=== PATIENT | female | born 1995 | race Two or more races ===

== ENCOUNTER 2024-11-25 10:33 | Emergency (ER) | payer MEDICAID, SELFPAY ==
[2024-11-25 11:20] VITALS: BP 142/79; PULSE 94; RESP 19; TEMP 36.9; O2SAT 98; BMI 63.1
--- NOTE | 2024-11-25 11:48 | XR_ITS ---
EXAMINATION: Ankle, right 3 views . Technique: Ankle AP, oblique, lateral 3 views Date and time of exam: November 25, 2024 1136 hrs. Indications: Patient fell today with injury to the ankle, ankle pain. Findings: Lateral malleolar soft tissue swelling No acute fracture No ankle dislocation Impression: No acute fracture
[2024-11-25] MEDS: HYDROcodone/APAP 5/325 TABLET 1 TAB PO (13:50)
--- NOTE | 2024-11-25 14:22 | EDNOTE_ITS ---
Lower Extremity Injury RME/HPI General Chief Complaint: Ankle/Foot Injury Stated Complaint: FELL & HURT RIGHT ANKLE PAIN/SWELLING Time Seen by Provider: 11/25/24 11:19 Arrival date/time: 11/25/24 10:33 This is a 29-year-old female presents to the emergency department with complaints of right ankle pain for 1 day. Patient reports she was wearing some boots with her heel when she inverted her right ankle causing her to fall on both her knees. Reports since then she has been limping and having moderate pain to her right ankle with ambulation. Denies any other injuries. Patient did not attempt any interventions or take any OTC medications prior to ED visit. Mode of arrival: wheelchair Related Data Home Medications ?Medication ?Instructions ?Recorded ?Confirmed lisinopril 10 mg tablet 40 mg PO QDAY 11/15/1707/07 Previous Rx's ?Medication ?Instructions ?Recorded hydrochlorothiazide 25 mg tablet 25 mg PO QAM #30 tabs 11/02/17 ibuprofen 800 mg tablet 800 mg PO TID PRN pain #30 t abs 07/07/19 cetirizine 10 mg capsule (All Day 10 mg PO QDAY #30 ca ps 09/14/20 Allergy (cetirizine)) sodium chloride 0.65 % nasal spray 2 spray intranasal QID #60 mL 09/14/20 aerosol (Saline Nasal Mist) ibuprofen 800 mg tablet (IBU) 800 mg PO Q8H #20 tabs 0 11/25/24 Allergies Allergy/AdvReac Type Severity Reaction Status Date / Time No Known Allergies Allergy Verified 11/25/24 10:34 Review of Systems Review of Systems Systems Reviewed: All systems reviewed, normal except as documented Narrative Review of Systems: Gen: No fever, no chills, no weight loss EYES: No discharge, no visual changes, no pain HEENT: No ear pain, no congestion, no sore throat PULM: No shortness of breath, no cough, no congestion CV: No chest pain, no dyspnea on exertion, no palpitations GI: No nausea, no vomiting, no diarrhea, no pain, no constipation : No frequency, no urgency,? no dysuria Musc/skel: Right ankle pain, no back pain Skin: No rash? Psyc: No hallucinations, no depression Heme/Lymph: No easy bleeding or bruising tendencies Neuro: No weakness, no headache ED Exam Narrative Physical exam: General: Sittiing in Exam table in no acute distress, answering questions appropriately HENT: normocephalic, atraumatic, EOMI, PERRLA, moist mucous membranes Chest: chest wall is nontender Cardiac: regular rate and rhythm, normal S1 and S2, no murmurs, rubs, or gallops, capillary refill ?2 seconds Pulmonary: clear to auscultation bilaterally, no wheezing, crackles, or rhonchi Abdominal: active bowel sounds, soft, nontender, nondistended Neuro: A&OX3, CN II-XII intact, sensation grossly intact bilaterally in UE and LE. Skin: no rashes, no ecchymosis Ext: + Abrasions superficial noted to bilateral knees. Right ankle malleoli are swelling tenderness to palpation CMS intact Course Quality Measures none Orders Category Date Time Status XR ankle comp RT min 3V Stat Exams 11/25/24 11:48 Completed HYDROcodone*/APAP 5/325 [[place] 5/325] Med 11/25/24 11:48 Discontinued 1 tab PO X1 ONE Vital Signs Vital signs: Vital Signs Temperature 98.4 F 11/25/24 11:20 Pulse Rate 94 11/25/24 11:20 Respiratory Rate 19 11/25/24 11:20 Blood Pressure 142/79 H 11/25/24 11:20 Pulse Oximetry (%) 98 11/25/24 11:20 Oxygen Delivery Method Room Air 11/25/24 11:20 Extremity Injury, Lower Patient data External records reviewed:: [facility] previous records Clinical information provided by:: patient Social determinants that could affect healthcare access:: none Patient has the following chronic illnesses:: none How is presenting disease/condition affected by chronic disease/condition?: no chronic disease Evaluation data The following diagnostics were reviewed and interpreted by me:: radiology exam(s) Lab and/or radiology exams considered but not ordered:: none Interpretation Summary: EXAMINATION: Ankle, right 3 views . Technique: Ankle AP, oblique, lateral 3 views Date and time of exam: November 25, 2024 1136 hrs. Indications: Patient fell today with injury to the ankle, ankle pain. Findings: Lateral malleolar soft tissue swelling No acute fracture No ankle dislocation Impression: No acute fracture Medications / Prescriptions Medications or Prescriptions considered but not ordered:: none Medication administrations:: Medication Administration History Discontinued Medications Hydrocodone Bitart/Acetaminophen (Hydrocodone/[place]ap 5/325 Tablet) 1 tab PO X1 ONE Stop: 11/25/24 11:49 Last Admin: 11/25/24 13:50 Dose: 1 tab Documented By: MARCOS All medications administered and effective Consultations Consultation(s) initiated? (list below): No Diagnosis Extremity Injury, Lower Differential Diagnosis: ankle sprain and strain, puncture wound of foot, fracture of toe and ankle fracture Most likely diagnosis given after review of the tests above:: Ankle strain and sprain Admission Indicated Admission indicated?: not indicated Admission Request Was there a request for admission?: No Disposition Plan Disposition Plan: Discharge Discharge Attestation Discharge Attestation: The patient and all family members were given an opportunity to ask questions and understood the discharge instructions. Discharge instructions specifically effects, indications for sooner follow up or return to the emergency department, and the expected course of current diagnosis. Patient condition: Stable Discharge Plan Plan Patient Disposition: HOME (Self Care) Patient condition on transfer: Stable Prescriptions/Referrals Prescriptions/Med Rec: New ibuprofen [IBU] 800 mg tablet 800 mg PO Q8H Qty: 20 0RF No Action hydrochlorothiazide 25 MG tablet 25 mg PO QAM Qty: 30 0RF lisinopril 10 mg Tablet 40 mg PO QDAY All Day Allergy (cetirizine) 10 mg capsule 10 mg PO QDAY Qty: 30 0RF sodium chloride [Saline Nasal Mist] 0.65 % aerosol,spray 2 spray intranasal QID Qty: 60 0RF ibuprofen 800 mg tablet 800 mg PO TID PRN (Reason: pain) Qty: 30 0RF Referrals: Wily Strickland PA-C [Primary Care Provider] - In 1 week Problem List Clinical Impression: Ankle sprain and strain Patient/Caregiver Discharge Instructions Discharge Activity: activity as tolerated Additional Instructions: Your x-ray today does not demonstrate a fracture. This is most likely a sprain. Use your ankles stirrup and ankle brace with the use of crutches for at least a week. Follow-up with your primary doctor you might need a repeat x-ray to reassure there is no secondary fracture. Return to the emergency department this any worsening symptoms change in condition. Print Language: Ghanaian Stand Alone Forms: Maren Award Info., Work/School Release, Patient Portal Info Letter [place] Supervising Physician [place] Supervising Physician: Dr Arita
== END 2024-11-25 15:48 | disposition home or self-care (01) ==
PROVIDERS: Emergency Provider Emergency Medicine; PCP Physician Assistant
DX: S93.401A Sprain of unspecified ligament of right ankle, initial encounter (principal); S96.911A Strain of unspecified muscle and tendon at ankle and foot level, right foot, initial encounter; W19.XXXA Unspecified fall, initial encounter
CPT/HCPCS: 73610; 99283; A9270

== ENCOUNTER 2025-02-28 21:51 | Emergency (ER) | payer MEDICAID, SELFPAY ==
[2025-02-28 21:51] VITALS: BMI 63.1
[2025-02-28 22:23] VITALS: BP 145/90; PULSE 90; RESP 18; TEMP 36.9; O2SAT 99
--- NOTE | 2025-03-01 | XR_ITS ---
Examination: Complete OB ultrasound, less than 14 weeks, transabdominal Date and time of exam: March 01, 2025 0024 hours INDICATIONS: Left-sided pelvic pain today Technique: Obstetrical ultrasound images less than 14 weeks performed via transabdominal imaging Findings: A normal shaped single intrauterine gestation is present in the uterus. pole 4.5 cm corresponds to 11 weeks 2 days gestational age Cardiac motion 160 BPM Ultrasonographic survey of visible and placental structures unremarkable. Amniotic fluid volume appears appropriate for this estimated gestational age. Right ovary 3.1 cm arterial flow Left ovary is obscured by bowel gas. IMPRESSION: Viable intrauterine gestation 11 weeks 2 days.
[2025-03-01 00:03] LABS: Basophils % (Auto) 0 % (0-2.5); Eosinophils # (Auto) 0.1 Thou/mm3 (0.0-0.5); Eosinophils % (Auto) 1 % (0-10); Hematocrit 36.9 % (36.0-46.0); Hemoglobin 11.4 g/dL (12.0-16.0); Immature Granulocytes % (Auto) 0 % (0-0); Immature Granulocytes Auto 0.03 Thou/mm3 (0.00-0.00); Lymphocytes # (Auto) 2.2 Thou/mm3 (1.0-4.8); Lymphocytes % (Auto) 24 % (10-50); Mean Corpuscular HGB Conc 30.9 g/dl (31.0-37.0); Mean Corpuscular Hemoglobin 25.3 pg (25.0-35.0); Mean Corpuscular Volume 82 fL (80-100); Monocytes # (Auto) 0.5 Thou/mm3 (0.0-0.8); Monocytes % (Auto) 5 % (0-12); Neutrophils # (Auto) 6.5 Thou/mm3 (1.8-7.7); Neutrophils % (Auto) 69 % (37-80); Nucleated Red Blood Cell % 0 /100 WBC (0); Platelet Count 235 Thou/mm3 (140-440); RDW Standard Deviation 44.3 fL (36.4-46.3); White Blood Count 9.4 Thou/mm3 (3.6-11.0)
--- NOTE | 2025-03-01 00:07 | PD.EDSOB ---
ED SOB =RME/HPI General Chief Complaint: Shortness of Breath/Dyspnea Stated Complaint: 12WKS PREG, DIZZINESS/ SOB /CRAMPING X 1WK Time Seen by Provider: 02/28/25 23:14 Arrival date/time: 02/28/25 21:51 RME / HPI RME / HPI Narrative: This section includes all my notes and documentations, including HPI, PE, and ED course. Harvey Tipton MD HPI: 29 y/o 12-week female with Hx of Hypertension and Gall bladder Disease presents with about a week history of left pelvic cramping and dyspnea. No fever. No cough. No bleeding. No other complaints. ROS: All negative except as documented in HPI. Physical Exam: General: Alert and oriented. No acute distress when remaining still. Eyes: Conjunctivae and lids clear. ENT: No nasal congestion. Neck: Supple. Heart: RRR. Lungs: No respiratory distress. Good air movement. No rhonchi, wheezing, rales. Abdomen: Soft and nontender. Normal bowel sounds. No distension. No rebound or guarding. Back: No CVA tenderness. Skin: Warm and dry. Neuro: Alert and oriented X 3. I reviewed all diagnostic test results. My review of the US report is IUP. Blood tests and urine tests unremarkable except hCG 25038. COVID/influenza negative. At this point, diagnoses include threatened miscarriage. Recommended expectant management. Based on my best medical judgment, made decision no further evaluation or treatment indicated at this time. Patient understands and agrees to the discharge instructions customized and printed, see below. Discharge Instructions from Dr. Tipton: 1.? ? ? After evaluation, your baby is alive and doing well. 2.? ? ? Today, your estimated gestational age is 11 5/7 weeks. 3.? ? ? Only time will determine whether you will have a successful or you will have a miscarriage.? If your symptoms stop, you can have a successful .? If your symptoms worsen, you may have a miscarriage.? If you have a miscarriage, unfortunately we won?t be able to save the baby because it?s too early.? Under 20 weeks, unfortunately we can?t help.?? 4.? ? ? See your doctor on 03/05/2025 for recheck.? No sexual activity until cleared by a doctor taking care of you.?? Your hCG level was [address]355, doubles every few days and normal . To increase your red blood cells which carry oxygen to your organs, increase food rich in iron (such as red meat and egg yolks and seaweed). 5.? ? ? Seek immediate medical care for severe bleeding (soaking more than 3 pads per hour), intolerable pain, or with any concerns.? Harvey Tipton MD Related Data Home Medications ?Medication ?Instructions ?Recorded ?Confirmed lisinopril 10 mg tablet 40 mg PO QDAY 11/15/17 07/07/19 Previous Rx's ?Medication ?Instructions ?Recorded hydrochlorothiazide 25 mg tablet 25 mg PO QAM #30 tabs 11/02/17 ibuprofen 800 mg tablet 800 mg PO TID PRN pain #30 tabs 07/07/19 cetirizine 10 mg capsule (All Day 10 mg PO QDAY #30 caps 09/14/20 Allergy (cetirizine)) sodium chloride 0.65 % nasal spray 2 spray intranasal QID #60 mL 09/14/20 aerosol (Saline Nasal Mist) ibuprofen 800 mg tablet (IBU) 800 mg PO Q8H #20 tabs 11/25/24 Allergies Allergy/AdvReac Type Severity Reaction Status Date / Time No Known Allergies Allergy Verified 11/25/24 10:34 Review of Systems Review of Systems Systems Reviewed: All systems reviewed, normal except as documented Past Medical History Past Medical History CARDIAC: Positive Hypertension GASTROINTESTINAL: Positive Pancreatitis and Gall Bladder Disease REPRODUCTIVE: Positive Previous Pregnancies Surgical History SURGICAL: Positive Tonsillectomy and Section ED Exam Narrative Physical exam: Refer to HPI above Course Quality Measures none Orders Category Date Time Status Bedside Influenza A&B Antigen Test NOW Care 02/28/25 23:43 Completed US OB <= 14 weeks fetus Stat Exams 03/01/25 00:00 Taken Beta HCG,Quantitative Stat Lab 02/28/25 23:49 Completed CBC Stat Lab 02/28/25 23:49 Completed CMP [Comprehensive Metabolic Panel] Stat Lab 02/28/25 23:49 Completed COVID-19 Antigen (In-House) Stat Lab 03/01/25 01:40 Completed Free T4 (Free Thyroxine) Stat Lab 02/28/25 23:49 Completed Magnesium Stat Lab 02/28/25 23:49 Completed TSH [Thyroid Stimulating Hormone] Stat Lab 02/28/25 23:49 Completed UA, C/S IF [Urinalysis, C/S if Indicated] Stat Lab 03/01/25 00:36 Completed Vital Signs Vital signs: Vital Signs Temperature 98.4 F 02/28/25 22:23 Pulse Rate 90 02/28/25 22:23 Respiratory Rate 18 02/28/25 22:23 Blood Pressure 145/90 H 02/28/25 22:23 Pulse Oximetry (%) 99 02/28/25 22:23 Oxygen Delivery Method Room Air 02/28/25 22:23 Shortness of Breath / Dyspnea MDM Narrative MDM Narrative:: Scribe Attestation: I, Rosie Leiva, am scribing for and in the presence of Dr. Tipton. Provider Notation: Although this document has been carefully reviewed, there may still be some phonetic and other typographical errors.? These errors are purely grammatical due to imperfections in the software program and should not be construed in any way to? compromise the substance of the patient's medical care during this visit. 29 y/o 12-week female with Hx of Hypertension and Gall bladder Disease presents to ED c/o intermittent shortness of breath x 1 week and dizziness and left-sided abdominopelvic cramping x 2 days. SOB is worse with general exertion. Denies history of Asthma. Patient's PCP recently stopped her hypertension medication. Also denies nausea, vomiting, cough, sore throat, fever, vaginal bleeding, or any urinary symptoms. No other complaints. Patient data External records reviewed:: [facility] previous records (Reviewed prior ED records from 11/25/24. Patient was seen for Ankle sprain and strain.) Clinical information provided by:: patient Social determinants that could affect healthcare access:: none Patient has the following chronic illnesses:: Hypertension, Gall Bladder Disease How is presenting disease/condition affected by chronic disease/condition?: exacerbated by Evaluation data The following diagnostics were reviewed and interpreted by me:: lab results and radiology exam(s) Lab and/or radiology exams considered but not ordered:: None Interpretation Summary: I reviewed all diagnostic test results. My review of the US report is IUP. Blood tests and urine tests unremarkable except hCG 97459. COVID/influenza negative. Medications / Prescriptions Medications or Prescriptions considered but not ordered:: None Medication administrations:: N/A Consultations Consultation(s) initiated? (list below): No Diagnosis Shortness of Breath Differential Diagnosis: community acquired pneumonia and other (Bronchitis, Influenza, COVID-19, URI) Most likely diagnosis given after review of the tests above:: threatened miscarriage Admission Indicated Admission indicated?: not indicated Explain why admission is indicated or not indicated:: There was no indication for admission.? Admission Request Was there a request for admission?: No Disposition Plan Disposition Plan: Discharge Discharge Attestation Discharge Attestation: The patient and all family members were given an opportunity to ask questions and understood the discharge instructions. Discharge instructions specifically effects, indications for sooner follow up or return to the emergency department, and the expected course of current diagnosis. Patient condition: Stable Discharge Plan Plan Patient Disposition: HOME (Self Care) Prescriptions/Referrals Prescriptions/Med Rec: No Action hydrochlorothiazide 25 MG tablet 25 mg PO QAM Qty: 30 0RF lisinopril 10 mg Tablet 40 mg PO QDAY All Day Allergy (cetirizine) 10 mg capsule 10 mg PO QDAY Qty: 30 0RF sodium chloride [Saline Nasal Mist] 0.65 % aerosol,spray 2 spray intranasal QID Qty: 60 0RF ibuprofen 800 mg tablet 800 mg PO TID PRN (Reason: pain) Qty: 30 0RF ibuprofen [IBU] 800 mg tablet 800 mg PO Q8H Qty: 20 0RF Referrals: Temporary Provider,ED [Physician] - In 1 week Problem List Clinical Impression: Threatened miscarriage Patient/Caregiver Discharge Instructions Discharge Activity: activity as tolerated Education Materials: ED Possible Miscarriage ... Additional Instructions: Discharge Instructions from Dr. Tipton: 1.? ? ? After evaluation, your baby is alive and doing well. 2.? ? ? Today, your estimated gestational age is 11 5/7 weeks. 3.? ? ? Only time will determine whether you will have a successful or you will have a miscarriage.? If your symptoms stop, you can have a successful .? If your symptoms worsen, you may have a miscarriage.? If you have a miscarriage, unfortunately we won?t be able to save the baby because it?s too early.? Under 20 weeks, unfortunately we can?t help.?? 4.? ? ? See your doctor on 03/05/2025 for recheck.? No sexual activity until cleared by a doctor taking care of you.?? Your hCG level was [address]1463, doubles every few days and normal . To increase your red blood cells which carry oxygen to your organs, increase food rich in iron (such as red meat and egg yolks and seaweed). 5.? ? ? Seek immediate medical care for severe bleeding (soaking more than 3 pads per hour), intolerable pain, or with any concerns.? Print Language: Uzbek Stand Alone Forms: Maren Award Info., Patient Portal Info Letter
[2025-03-01 00:57] LABS: Alanine Aminotransferase 32 U/L (10-49); Albumin, Serum 4.1 gm/dL (3.5-5.0); Albumin/Globulin Ratio 1.5 (1.2-2.2); Alkaline Phosphatase 67 U/L (46-116); Anion Gap 11 (7-16); Aspartate Amino Transferase 25 U/L (0-34); BUN/Creatinine Ratio 10 Ratio (12-20); Beta HCG,Quantitative 59784 mIU/mL (<5.0); Bilirubin,Total 0.4 mg/dL (0.3-1.2); Blood Urea Nitrogen 8 mg/dL (9-23); Calcium 8.6 mg/dL (8.3-10.6); Calcium (Corrected) 8.6 mg/dL (8.5-10.1); Carbon Dioxide 24.4 mMol/L (20.0-31.0); Chloride 105 mMol/L (98-107); Creatinine (Component) 0.8 mg/dL (0.6-1.3); Estimated Creatinine Clearance 180.3 mL/min (>60); Free T4 (Free Thyroxine) 1.36 ng/dL (0.89-1.76); Globulin 2.7 gm/dL (2.3-3.5); Glucose 100 mg/dL (74-106); Magnesium 1.8 mg/dL (1.6-2.6); Osmolality,Calculated 277 (275-295); Potassium 3.8 mMol/L (3.4-5.1); Sodium 140 mMol/L (136-145); Thyroid Stimulating Hormone 2.02 uIU/mL (0.55-4.78); Total Protein 6.8 gm/dL (5.7-8.2); eGFR > 60 See Note
[2025-03-01 01:14] LABS: Collection Type, Urine Clean Catch; RBC,Urine 0 /hpf (0-3); WBC,Urine 0 /hpf (0-5)
[2025-03-01 01:24] LABS: Bacteria,Urine Rare; Bilirubin,Urine Negative (Negative); Blood,Urine Negative (Negative); Clarity,Urine Clear (Clear/Hazy); Color,Urine Yellow (Lt Yel-Yel); Culture Indicated,Urine Not Indicated; Glucose, Urine Negative (Negative); Ketones,Urine Negative (Negative); Leukocyte Esterase,Urine Negative (Negative); Nitrite,Urine Negative (Negative); Protein,Urine Negative (Neg - Trace); Specific Gravity,Urine 1.024 (1.001-1.035); Squamous Epithelial Cell,Urine 3 /hpf (0-5)
--- NOTE | 2025-03-01 01:59 | PRELIM_ITS ---
Obstetric ultrasound (transabdominal ) with Doppler. March 01, 2025 0024 hours Clinical history: Cramping (GA 12 weeks). Technique: Real-time ultrasound was performed using Duplex scanning including arterial inflow, venous outflow, color and spectral Doppler analysis of right ovary. Comparison: None. Findings: There is an intrauterine gestation with a single live fetus of mean gestational age 11 weeks and 5 days (CRL= 4.99 cm). cardiac activity is present at heart rate of 160 beats per minute. The uterus measures 14.2 x 7.5 x 9.9 cm. The right ovary measures 3.1 x 2.4 x 2.6 cm and is unremarkable. The left ovary was not visualized. Normal blood flow in the right ovary with normal wave Doppler spectral analysis. There is no free fluid in the pelvis. No abnormalities detected by Doppler. Impression: Intrauterine gestation with a single live fetus of mean gestational age 11 weeks and 5 days. Report Electronically Signed By: Enrico Funes 03/01/2025 1:58:18 AM [EST]
[2025-03-01 02:05] VITALS: BP 133/83; PULSE 81; RESP 19; TEMP 36.8; O2SAT 98
[2025-03-01 02:47] LABS: COVID-19 Antigen (In-House) Negative (Negative)
== END 2025-03-01 02:57 | disposition home or self-care (01) ==
PROVIDERS: Emergency Provider Emergency Medicine; PCP Family Medicine
DX: O20.0 Threatened abortion (principal); Z3A.12 12 weeks gestation of pregnancy
CPT/HCPCS: 36415; 76801; 80053; 81001; 83735; 84439; 84443; 84702; 85025; 87400; 87811; 99284

== ENCOUNTER 2025-09-12 17:53 | Emergency (ER) | payer MEDICAID, SELFPAY ==
[2025-09-12 19:41] VITALS: BP 161/94; PULSE 98; RESP 20; TEMP 37.1; O2SAT 97; BMI 65.7
--- NOTE | 2025-09-12 19:43 | EDNOTE_ITS ---
ED Headache RME/HPI General Chief Complaint: Headache Stated Complaint: 09/07/25, CHATTERJEE, chills Time Seen by Provider: 09/12/25 19:48 Arrival date/time: 09/12/25 17:53 RME / HPI RME / HPI Narrative: See [facility] for Dr. Tipton's HPI Documentation. Related Data Home Medications ?Medication ?Instructions ?Recorded ?Confirmed lisinopril 10 mg tablet 40 mg PO QDAY 11/15/1707/07 Previous Rx's ?Medication ?Instructions ?Recorded hydrochlorothiazide 25 mg tablet 25 mg PO QAM #30 tabs 11/02/17 ibuprofen 800 mg tablet 800 mg PO TID PRN pain #30 t abs 07/07/19 cetirizine 10 mg capsule (All Day 10 mg PO QDAY #30 ca ps 09/14/20 Allergy (cetirizine)) sodium chloride 0.65 % nasal spray 2 spray intranasal QID #60 mL 09/14/20 aerosol (Saline Nasal Mist) ibuprofen 800 mg tablet (IBU) 800 mg PO Q8H #20 tabs 0 11/25/24 Allergies Allergy/AdvReac Type Severity Reaction Status Date / Time No Known Allergies Allergy Verified 09/12/25 17:59 Review of Systems Review of Systems Systems Reviewed: All systems reviewed, normal except as documented Past Medical History Past Medical History CARDIAC: Positive Hypertension GASTROINTESTINAL: Positive Gastrointestinal Disorders, Pancreatitis and Gall Bladder Disease REPRODUCTIVE: Positive Previous Pregnancies Surgical History SURGICAL: Positive Tonsillectomy and Section ED Exam Narrative Physical exam: See [facility] for Dr. Tipton's Physical Exam Documentation. Course Quality Measures none Orders Category Date Time Status COVID-19 Screening Questionnaire NOW Care 09/12/25 22:[address] Screening NOW Care 09/12/25 23:58 Active Decision to Admit X1 Care 09/12/25 22:18 Completed EKG (ED ONLY) *Do not use* NOW Care 09/12/25 20:24 Completed Miscellaneous Nursing Order PRN Care 09/12/25 23:07 Active Saline [Insert IV] NOW Care 09/12/25 20:23 Active Consult to General Surgery Stat Cons 09/13/25 02:53 Ordered Consult to Obstetrics Stat Cons 09/12/25 22:[address] abdomen pelvis w con Stat Exams 09/12/25 23:[address] head/brain wo con Stat Exams 09/12/25 20:25 Completed EKG (ED Only) Stat Exams 09/12/25 20:24 Draft US gall bladder Stat Exams 09/12/25 20:25 Completed XR chest 1V portable Stat Exams 09/12/25 20:24 Completed Amylase Stat Lab 09/12/25 20:45 Completed BNP [B-Type Natriuretic Peptide] Stat Lab 09/12/25 20:45 Completed Bilirubin,Direct Stat Lab 09/12/25 20:45 Completed CBC Stat Lab 09/12/25 20:45 Completed CK [Creatine Kinase] Stat Lab 09/12/25 20:45 Completed CMP [Comprehensive Metabolic Panel] Stat Lab 09/12/25 20:45 Completed COVID-19 Antigen (In-House) Stat Lab 09/12/25 22:50 Completed CRP [C-Reactive Protein] Stat Lab 09/12/25 20:45 Completed ESR [Sed Rate (ESR)] Stat Lab 09/12/25 20:45 Completed FLU A&B [Influenza A & B Rapid Panel] Stat Lab 09/12/25 22:50 Completed Hemoglobin A1C [Glycohemoglobin w (eAG)] Stat Lab 09/12/25 20:45 Completed Lipase Stat Lab 09/12/25 20:45 Completed Magnesium Stat Lab 09/12/25 20:45 Completed PT [Prothrombin Time with INR] Stat Lab 09/12/25 20:45 Completed PTT [Partial Thromboplastin Time] Stat Lab 09/12/25 20:45 Completed Procalcitonin Stat Lab 09/12/25 20:45 Completed TSH [Thyroid Stimulating Hormone] Stat Lab 09/12/25 20:45 Completed Troponin I Stat Lab 09/12/25 20:45 Completed UA, C/S IF [Urinalysis, C/S if Indicated] Stat Lab 09/12/25 20:38 Completed Uric Acid Stat Lab 09/12/25 20:45 Completed Urine Culture Stat Lab 09/12/25 20:38 Received VBG [Venous Blood Gas] Stat Lab 09/12/25 20:45 Completed HYDROcodone*/APAP 5/325 [[place] 5/325] Med 09/12/25 23:02 Discontinued 2 tab PO Q6HR PRN HYDROcodone*/APAP 5/325 [[place] 5/325] Med 09/13/25 03:43 Active 2 tab PO Q6HR PRN Ibuprofen Tab [Motrin Tab] Med 09/12/25 23:01 Discontinued 800 mg PO Q8HR ONE Labetalol Tab [Trandate Tab] Med 09/12/25 23:15 Active 200 mg PO TID Labetalol* IV [Trandate IV] Med 09/12/25 20:24 Discontinued 20 mg IVP X1 ONE Magnesium Sulfate 2 GM Ivpb [Magnesium Sulfate Ivpb] Med 09/12/25 20:24 Discontinued 2 gm in 50 ml IV X1 Ondansentron Med 09/13/25 00:00 Discontinued 4 mg IV Q6HR Ondansetron Inj [Zofran Inj] Med 09/13/25 03:50 Active 4 mg IV Q6HR PRN NV Nausea Or Vomiting Ondansetron Inj [Zofran Inj] Med 09/12/25 20:24 Discontinued 4 mg IVP X1 ONE Sodium Chloride 0.9% 1000 ml [Ns] 1,000 ml Med 09/12/25 20:24 Discontinued IV 999 mls/hr cefTRIAXone/D5w 1gm IV premix [Rocephin/D5w 1gm IV Med 09/13/25 05:37 Ordered premix] 50 ml IV X1 Vital Signs Vital signs: Vital Signs Temperature 98.8 F 09/12/25 19:41 Pulse Rate 98 09/12/25 19:41 Respiratory Rate 20 09/12/25 19:41 Blood Pressure 161/94 H 09/12/25 19:41 Pulse Oximetry (%) 97 09/12/25 19:41 Oxygen Delivery Method Room Air 09/12/25 19:41 Headache MDM Narrative MDM Narrative:: This section includes all my notes and documentations, including HPI, PE, and ED course. Harvey Tipton MD HPI: 30 y/o female presents with headache and elevated blood pressure s/p 5 days ago. No speech or visual impairment. No loss of power in the arms or legs. No chest pain. No other complaints. ROS: All negative except as documented in HPI. Physical Exam: General:? Alert and oriented.? No acute distress when remaining still. Eyes:? Conjunctivae and lids clear.? EOMI.? PERRL. ENT:? No nasal congestion.? Pharynx normal.? Tympanic membrane normal bilaterally.??? Neck:? Supple.? No carotid bruit.? No JVD.?? Heart:? RRR.? Lungs:? No respiratory distress.? Good air movement.? No rhonchi, wheezing, rales.?? Abdomen:? Soft with apical tenderness.? Normal bowel sounds.? No distension.? No rebound or guarding.?? Back:? No CVA tenderness.?? Legs:? No clubbing, cyanosis, edema.? Skin:? Warm and dry.?? Neuro:? Alert and oriented X 3.? Cranial Nerves II-XII grossly intact.? No peripheral motor deficits. I reviewed all diagnostic test results: My interpretation of the EKG is: Sinus rhythm (97 bpm) with nonspecific ST-T changes. My interpretation of the chest x-ray is NAD. My review of the Head/Brain CT report is: No acute findings. My review of the Abdomen/Pelvis CT report is: Fat containing umbilical and supraumbilical hernias. My review of the Gallbladder US report is: NAD. Blood tests remarkable for Mg 1.4. UA showed trace protein, leukocyte esterase, 278 RBC, and 38 WBC. Covid/Influenza: Negative. At this point, diagnoses include: Preeclampsia Hypomagnesemia UTI Fat-containing umbilical hernia Treatment here included: IVF Zofran 4 mg IV Labetalol 20 mg IV MgSO4 2 gram IV Rocephin 1 g IV Some improvement noted. I discussed the case with our DIRECTOR LEARNING (Dr. Chen). About the presentation and exam and diagnostics and treatments here. And need of further care in the hospital. Will accept the patient. Harvey Tipton MD Patient data External records reviewed:: [facility] previous records (Reviewed prior ED records fro m 03/01/25. Patient was seen for Threatened miscarriage.) Clinical information provided by:: patient Social determinants that could affect healthcare access:: none Patient has the following chronic illnesses:: None reported How is presenting disease/condition affected by chronic disease/condition?: no chronic disease Evaluation data The following diagnostics were reviewed and interpreted by me:: EKG tracing(s) (My interpretation of the EKG is: Sinus rhythm (97 bpm) with nonspecific ST-T changes. Harvey Tipton MD) Lab and/or radiology exams considered but not ordered:: None Interpretation Summary: I reviewed all diagnostic test results: My interpretation of the EKG is: Sinus rhythm (97 bpm) with nonspecific ST-T changes. My interpretation of the chest x-ray is NAD. My review of the Head/Brain CT report is: No acute findings. My review of the Abdomen/Pelvis CT report is: Fat containing umbilical and supraumbilical hernias. My review of the Gallbladder US report is: NAD. Blood tests remarkable for Mg 1.4. UA showed trace protein, leukocyte esterase, 278 RBC, and 38 WBC. Covid/Influenza: Negative. Medications / Prescriptions Medications or Prescriptions considered but not ordered:: None Medication administrations:: Medication Administration History Hydrocodone Bitart/Acetaminophen (Hydrocodone/[place]ap 5/325 Tablet) 2 tab PO Q6HR PRN PRN Reason: PAIN SCALE 4-6 (Moderate Stop: 09/18/25 03:42 Ceftriaxone Sodium/Dextrose (Rocephin/D5w 1gm Iv Premix) 50 mls @ 100 mls/hr IV X1 ONE Stop: 09/13/25 06:06 Labetalol HCl (Labetalol 100 Mg Tablet) 200 mg PO TID SHARLA Stop: 10/12/25 23:14 Last Admin: 09/12/25 23:10 Dose: 200 mg Documented By: CARL Ondansetron HCl (Ondansetron Inj 2 Mg/Ml Inj 2 Ml) 4 mg IV Q6HR PRN PRN Reason: NAUSEA OR VOMITING Stop: 10/13/25 03:49 Discontinued Medications Hydrocodone Bitart/Acetaminophen (Hydrocodone/Apap 5/325 Tablet) 2 tab PO Q6HR PRN PRN Reason: headache/pain Stop: 09/17/25 23:01 Magnesium Sulfate (Magnesium Sulfate Ivpb) 2 gm in 50 mls @ 25 mls/hr IV X1 ONE Stop: 09/12/25 22:23 Last Infusion: 09/13/25 00:10 Dose: Infused Documented By: Admin: 09/12/25 22:11 Dose: 25 mls/hr Documented By: EB Sodium Chloride (Ns) 1,000 mls @ 999 mls/hr IV .Q1H1M ONE Stop: 09/12/25 21:24 Last Infusion: 09/12/25 23:40 Dose: Infused Documented By: Admin: 09/12/25 22:10 Dose: 999 mls/hr Documented By: EB Ibuprofen (Ibuprofen Tab 400 Mg Tablet) 800 mg PO Q8HR ONE Stop: 09/12/25 23:02 Last Admin: 09/12/25 23:12 Dose: 800 mg Documented By: EB Labetalol HCl (Labetalol Inj 5 Mg/Ml Vial 4 Ml) 20 mg IVP X1 ONE Stop: 09/12/25 20:25 Last Admin: 09/12/25 23:40 Dose: Not Given Documented By: EB Non-Admin Reason: Cancelled by Provider Non-Formulary Medication (Ondansentron) 4 mg IV Q6HR SHARLA Stop: 10/13/25 00:00 Last Admin: 09/13/25 05:28 Dose: Not Given Documented By: RC Non-Admin Reason: Discontinued Ondansetron HCl (Ondansetron Inj 2 Mg/Ml Inj 2 Ml) 4 mg IVP X1 ONE; Protocol Stop: 09/12/25 20:25 Last Admin: 09/13/25 01:50 Dose: Not Given Documented By: CVL Non-Admin Reason: Change of Condition Treatment here FROM ME included: IVF Zofran 4 mg IV Labetalol 20 mg IV MgSO4 2 gram IV Rocephin 1 g IV Consultations Consultation(s) initiated? (list below): Yes Consultation #1 (Physician, Specialty, Details): I discussed the case with our DIRECTOR LEARNING (Dr. Chen). About the presentation and exam and diagnostics and treatments here. And need of further care in the hospital. Will accept the patient. Time: 22:10 Diagnosis Differential diagnosis headache: migraine, tension headache, subarachnoid hemorrhage and other (Preeclampsia) Most likely diagnosis given after review of the tests above:: At this point, diagnoses include: Preeclampsia Hypomagnesemia UTI Fat-containing umbilical hernia Admission Indicated Admission indicated?: indicated Explain why admission is indicated or not indicated:: Preeclampsia Hypomagnesemia UTI Fat-containing umbilical hernia Admission Request Was there a request for admission?: Yes Admission Attestation Admission request attestation: I discussed the case with our DIRECTOR LEARNING (Dr. Chen). About the presentation and exam and diagnostics and treatments here. And need of further care in the hospital. Will accept the patient. Disposition Plan Disposition Plan: Admit Discharge Plan Plan Patient Disposition: Admit Acute Care w/in Hospital Prescriptions/Referrals Prescriptions/Med Rec: No Action hydrochlorothiazide 25 MG tablet 25 mg PO QAM Qty: 30 0RF lisinopril 10 mg Tablet 40 mg PO QDAY All Day Allergy (cetirizine) 10 mg capsule 10 mg PO QDAY Qty: 30 0RF sodium chloride [Saline Nasal Mist] 0.65 % aerosol,spray 2 spray intranasal QID Qty: 60 0RF ibuprofen 800 mg tablet 800 mg PO TID PRN (Reason: pain) Qty: 30 0RF ibuprofen [IBU] 800 mg tablet 800 mg PO Q8H Qty: 20 0RF Referrals: Osbaldo Cao MD [Primary Care Provider, Family Practice] - In 1 week Problem List Clinical Impression: Preeclampsia, Hypomagnesemia, Umbilical hernia, Urinary tract infection Patient/Caregiver Discharge Instructions Print Language: [place] Zealander Stand Alone Forms: Maren Award Info., Patient Portal Info Letter
--- NOTE | 2025-09-12 20:24 | XR_ITS ---
EXAMINATION: PA chest single view TECHNIQUE: Upright PA chest single view Date and time: September 12, 2025, 2044 hours, comparison December 11, 2020 INDICATIONS: Shortness of breath status post 5 days ago FINDINGS: Normal heart size Mild prominent central pulmonary vasculature. No pneumonia or pulmonary edema IMPRESSION: Mild prominent central pulmonary vasculature
--- NOTE | 2025-09-12 20:24 | EKG_ITS ---
[facility] Test Date: 2025-09-12 Pat Name: PATRICIO THORNTON Department: Room: - Gender: Female Business Programmer: : 1995 Requested By: Harvey Mason Order Number: [id number] Reading MD: Harvey Mason Measurements Intervals [place] Rate: 97 P: 44 AL: 146 QRS: 24 QRSD: 91 T: 39 QT: 333 QTc: 424 Interpretive Statements SINUS RHYTHM LOW QRS VOLTAGE IN PRECORDIAL LEADS [QRS DEFLECTION < 1.0 mV IN CHEST LEADS] Compared to ECG 09/13/2020 23:10:33 Sinus tachycardia no longer present /store/S0/[id number]/ecg/[id number].pdf
--- NOTE | 2025-09-12 20:25 | XR_ITS ---
Examination: Abdomen sonogram, Limited Date and time of exam: September 12, 2025, 2113 hours INDICATIONS: Epigastric pain beginning 3 days ago. Technique: Real-time farias scale transabdominal sonographic images of the upper abdomen obtained. Findings: Absent gallbladder Normal common bile duct 0.5 cm Pancreatic head 3.3 cm Liver 23.7 cm fatty infiltration no focal liver lesions Normal hepatopetal portal venous flow Patent IVC IMPRESSION: Normal common bile duct Prominent hepatomegaly fatty infiltration no focal liver lesions
--- NOTE | 2025-09-12 20:25 | XR_ITS ---
Examination: CT brain head without contrast. 2-D sagittal coronal reconstructions Date and time of exam: September 12, 2025, 2036 hours INDICATIONS: Onset generalized head pain today COMPARISON: September 13, 2020 CTDI: vol (mGy): 76.8 DLP: (mGycm): 1593 Technique: Multiple CT axial sections of the brain have been obtained, 5 mm slice thickness. Contrast has not been administered. 2-D sagittal, coronal reconstructions have been obtained Low dose protocols were performed. One or more of the following dose reduction techniques were used; automated exposure control, adjustment of the mA and/or KV according to patient size, use of iterative reconstruction technique. Findings: No significant ventricular enlargement. Intra-axial or extra-axial hemorrhage density is not seen. No mass effect or midline shift Basal cisterns are not remarkable. Fourth ventricle is midline. Cranial vault intact. 10 mm polyp in the left maxillary antrum Impression: Negative for acute hemorrhage, mass effect or midline shift Advise clinical correlation and follow-up accordingly
[2025-09-12 20:49] LABS: Collection Type, Urine Clean Catch
[2025-09-12 21:02] LABS: Bilirubin,Urine Negative (Negative); Blood,Urine 3+ (Negative); Clarity,Urine Clear (Clear/Hazy); Color,Urine Yellow (Lt Yel-Yel); Glucose, Urine Negative (Negative); Ketones,Urine Negative (Negative); Leukocyte Esterase,Urine Positive (Negative); Nitrite,Urine Negative (Negative); PH,Urine 6.0 (5.0-7.0); Protein,Urine Trace (Neg - Trace); RBC,Urine 278 /hpf (0-3); Specific Gravity,Urine 1.023 (1.001-1.035); Squamous Epithelial Cell,Urine 2 /hpf (0-5); Urobilinogen,Urine Negative mg/dL (0.0-1.0); WBC,Urine 38 /hpf (0-5)
[2025-09-12 21:02] LABS: Base Excess, Venous 5 (-3-3); O2 Saturation, Venous 81 % (96-97); PCO2, Venous 34 mmHg (36-56); PO2, Venous 43 mmHg (15-58); pH, Venous 7.52 (7.33-7.66)
[2025-09-12 21:08] LABS: Culture Indicated,Urine Yes
[2025-09-12 21:15] LABS: Basophils # (Auto) 0.0 Thou/mm3 (0.0-0.2); Basophils % (Auto) 0 % (0-2.5); Eosinophils # (Auto) 0.1 Thou/mm3 (0.0-0.5); Eosinophils % (Auto) 1 % (0-10); Hematocrit 29.9 % (36.0-46.0); Hemoglobin 9.4 g/dL (12.0-16.0); Immature Granulocytes Auto 0.06 Thou/mm3 (0.00-0.00); Lymphocytes # (Auto) 0.7 Thou/mm3 (1.0-4.8); Lymphocytes % (Auto) 7 % (10-50); Mean Corpuscular HGB Conc 31.4 g/dl (31.0-37.0); Mean Corpuscular Hemoglobin 27.2 pg (25.0-35.0); Mean Corpuscular Volume 86 fL (80-100); Monocytes # (Auto) 0.6 Thou/mm3 (0.0-0.8); Monocytes % (Auto) 6 % (0-12); Neutrophils # (Auto) 8.6 Thou/mm3 (1.8-7.7); Neutrophils % (Auto) 85 % (37-80); Nucleated Red Blood Cell # 0.03 Thou/mm3 (0.00-0.00); Nucleated Red Blood Cell % 0 /100 WBC (0); Platelet Count 234 Thou/mm3 (140-440); RDW Standard Deviation 48.1 fL (36.4-46.3); Red Blood Count 3.46 Miln/mm3 (4.00-5.20); White Blood Count 10.1 Thou/mm3 (3.6-11.0)
[2025-09-12 21:18] LABS: Sed Rate (ESR) 44 mm/hr (0-20)
[2025-09-12 21:21] LABS: INR 1.0 (0.9-1.3); Partial Thromboplastin Time 30.0 Seconds (22.0-36.0); Prothrombin Time 10.4 Seconds (9.0-12.2)
[2025-09-12 21:22] LABS: B-Type Natriuretic Peptide 62 pg/mL (0-100)
[2025-09-12 21:31] LABS: Glucose Estimated Average 97 mg/dL (80-131); Hemoglobin A1C 5.0 % Hgb (4.8-6.0)
[2025-09-12 21:33] VITALS: BP 152/93; PULSE 84; RESP 20; TEMP 36.6; O2SAT 97
[2025-09-12 21:33] LABS: Alanine Aminotransferase 31 U/L (10-49); Albumin, Serum 4.0 gm/dL (3.5-5.0); Albumin/Globulin Ratio 1.4 (1.2-2.2); Alkaline Phosphatase 120 U/L (46-116); Amylase 86 U/L (30-118); Anion Gap 11 (7-16); Aspartate Amino Transferase 22 U/L (0-34); BUN/Creatinine Ratio 11 Ratio (12-20); Bilirubin,Direct 0.2 mg/dL (0.0-0.3); Bilirubin,Total 0.6 mg/dL (0.3-1.2); Blood Urea Nitrogen 8 mg/dL (9-23); Calcium 8.8 mg/dL (8.3-10.6); Calcium (Corrected) 8.8 mg/dL (8.5-10.1); Carbon Dioxide 27.8 mMol/L (20.0-31.0); Chloride 106 mMol/L (98-107); Creatine Kinase 55 U/L (34-171); Creatinine (Component) 0.7 mg/dL (0.6-1.3); Estimated Creatinine Clearance 210.0 mL/min (>60); Globulin 2.8 gm/dL (2.3-3.5); Glucose 111 mg/dL (74-106); Lipase 30 U/L (12-53); Magnesium 1.4 mg/dL (1.6-2.6); Osmolality,Calculated 288 (275-295); Potassium 3.7 mMol/L (3.4-5.1); Procalcitonin 0.09 ng/ml (0.0-0.49); Sodium 145 mMol/L (136-145); Thyroid Stimulating Hormone 1.62 uIU/mL (0.55-4.78); Total Protein 6.8 gm/dL (5.7-8.2); Troponin I 0.023 ng/mL (0.0-0.045); Uric Acid 6.5 mg/dL (3.1-7.8); eGFR > 60 See Note
[2025-09-12 21:35] LABS: C-Reactive Protein 12.8 mg/dL (0.0-0.9)
[2025-09-12] MEDS: SODIUM CHLORIDE 0.9% 1000 ML 1,000 ML 999 ML IV (22:10)
[2025-09-12] MEDS: Magnesium Sulfate 2 GM Ivpb 2 GM/50 ML BAG IV (22:11)
[2025-09-12 23:10] VITALS: BP 155/80; PULSE 94
[2025-09-12] MEDS: LABETALOL 100 MG TABLET 200 MG PO (23:10)
[2025-09-12 23:12] VITALS: TEMP 36.6
[2025-09-12] MEDS: IBUPROFEN TAB 400 MG TABLET 800 MG PO (23:12)
[2025-09-12 23:26] LABS: COVID-19 Antigen (In-House) Negative (Negative); Influenza A Ag Negative; Influenza B Ag Negative
--- NOTE | 2025-09-12 23:58 | XR_ITS ---
Examination: CT abdomen with intravenous contrast CT pelvis with intravenous contrast 2-D coronal reconstructions 2-D sagittal reconstructions Date and time of exam: September 13, 2025, 0140 hours INDICATIONS: Status post September 07, 2025 with headache chills abdominal pain. CTDI: vol (mGy) 27.6 DLP: (mGycm) 1777 Technique: Multiple axial sections of the abdomen and pelvis have been obtained. 64 slice high-resolution scanner used. 3 mm axial sections have been obtained, post intravenous injection 60 cc [id number] 2-D sagittal, coronal reconstructions obtained. Low dose protocols were performed. One or more of the following dose reduction techniques were used; automated exposure control, adjustment of the mA and/or KV according to patient size, use of iterative reconstruction technique. Findings: No focal liver or splenic lesions, mild hepatomegaly mild to moderate splenomegaly Absent gallbladder No pancreatic mass No hydronephrosis Supraumbilical fat-containing hernia, 4.5 cm Fat-containing umbilical hernia 4.8 cm Prominent fundus of the uterus with thickened endometrial stripe in the lower uterine segment Mild disc narrowing L5-S1 Likely postoperative change in the anterior pelvic wall IMPRESSION: Hepatosplenomegaly Fat-containing umbilical and supraumbilical hernias No bowel obstruction
[2025-09-13] VITALS (11 sets, daily range): BP systolic 109–165; BP diastolic 71–98; PULSE 63–92; RESP 18–20; TEMP 36.6–37; O2SAT 95–98
--- NOTE | 2025-09-13 01:05 | PC.NURSE ---
Pt reports 6/10 CHATTERJEE that is improved from earlier. Pt BP is now 109/84 which is vast improvement
--- NOTE | 2025-09-13 02:47 | PRELIM_ITS ---
CT scan of the abdomen and pelvis with intravenous contrast (axial sections with sagittal and coronal reformats) September 13, 2025 at 0140 hours Clinical History: Abdominal pain (question umbilical hernia).Additional history: on September 07, 2025. Comparison: No prior study is available for comparison. Findings: Bibasilar atelectasis is seen. The gallbladder is surgically absent. There is mild hepatomegaly. There is also moderate splenomegaly. The pancreas, kidneys and adrenals are unremarkable. No evidence of bowel obstruction. The appendix is not visualized. The urinary bladder is unremarkable. There is an enlarged uterus. There is no free fluid or free air. There are fat containing umbilical and supraumbilical hernias. There is fat stranding in the anterior pelvic wall, which may be related to recent surgery. There is dependent subcutaneous soft tissue edema overlying the lumbar spine. There is degenerative change in the spine and at the SI joints. Impression: 1. No evidence of bowel obstruction, free air or abscess. 2. Fat containing umbilical and supraumbilical hernias. 3. Other findings as described above. Report Electronically Signed By: Jimenez Page 09/13/2025 2:46:37 AM [EST]
--- NOTE | 2025-09-13 06:48 | PC.NURSE ---
multiple calls made to pharmacy to get Ceftriaxone restocked or delivered Per 800 number pharmacy in house is there at 0630 but no anser mult times
--- NOTE | 2025-09-13 07:11 | PC.NURSE ---
kevynar to Uche MARKHAM
[2025-09-13] MEDS: cefTRIAXone/D5w 1gm IV premix 1 GM/50 ML BAG IV (07:12)
[2025-09-13] MEDS: LABETALOL 100 MG TABLET 200 MG PO ×2 (07:12→14:26)
--- NOTE | 2025-09-13 12:45 | PD.SURCONS ---
HPI Consult details History of present illness: 30F with HTN, morbid obesity, chronic ventral hernia and C section on 09/07/25 who presented to ER due to headache. Pt underwent CT AP due to abdominal pain with findings of two ventral hernias, each containing fat and >4cm. Pt states she has had the more superior hernia for as long as she can remember while the umbilical hernia occurred after cholecystectomy. She reports her headache has improved and she is not having any abdominal pain Review of Systems Review of Systems ROS Unobtainable: All systems reviewed & no additional complaints except as documented Meds Home Medications and Allergies Home Medications ?Medication ?Instructions ?Recorded ?Confirmed ?Type lisinopril 10 mg tablet 40 mg PO QDAY 11/15/17 07/07/19 History Allergies Allergy/AdvReac Type Severity Reaction Status Date / Time No Known Allergies Allergy Verified 09/12/25 17:59 Exam Vital Signs Temp Pulse Resp BP Pulse Ox O2 Del Method 98.4 F 76 18 149/82 H 98 Room Air 09/13/25 10:06 09/13/25 10:06 09/13/25 10:06 09/13/25 10:06 09/13/25 10:06 09/13/25 10:06 Constitutional Constitutional: no acute distress Routine Respiratory Exam Respiratory: Present no resp distress Routine Abdominal Exam Abdominal: Present soft and hernia (reducible ventral hernias, no overlying skin changes); Absent tenderness or distended Results Results: Laboratory Laboratory results: results reviewed Results: Imaging CT scan - abdomen: report reviewed and image reviewed Assessment & Plan Plan 30F with HTN, morbid obesity and Csection on 09/07/25 presenting with headache, with chronic ventral hernias containing fat. Pt does not require any surgical intervention now and understands that elective surgery would best be undertaken only after significant weight loss, due to the very high risk of recurrence No general surgery intervention indicated Please reconsult as needed
--- NOTE | 2025-09-13 13:53 | PD.EVENT ---
Documentation for date of: 09/13/25 Event Note Event Note: The patient is a 30-year-old -0-0-2 status post repeat low-transverse section in [place] with the high risk obstetrics service who presented to the ER around midnight reporting a headache headache. At that time her blood pressures were elevated. She received 1-2 doses of IV labetalol. Dr. Chen was planning on admitting the patient but the patient has been monitored since then and her blood pressures are mostly in the 140s to 150s over 70s. Patient's headache is very similar to a spinal headache. She states that during her surgery, they tried to place the spinal several times and were not successful and she had to go under general anesthesia. Of note her BMI is 66. As the patient is not a candidate for a blood patch and is it not likely to be successful, the plan will be to send the patient home with close follow-up. She has an appointment with her primary ACADEMIC SERVICES PROFESSIONAL in [place] tomorrow. I will send her home with Chai. She was encouraged to take her oxycodone. She stated she only took 2 oxycodone tablets total since surgery because she is afraid that she is going to get constipated. She denies right upper quadrant pain, visual changes, and her headache seems positional in nature. Her CT scan was negative her lab work is normal. Patient states she is a chronic hypertensive usually on lisinopril and hydrochlorothiazide before . She has been followed this with [facility] home monitoring. She was discharged home on 200 mg of labetalol twice a day from [place]. I asked her to increase this to 300 mg twice a day and follow-up with her primary [employer] SET UP OPERATOR tomorrow for her scheduled appointment. She will be discharged from the ER at this time.
--- NOTE | 2025-09-13 13:59 | ESDS_ITS ---
DS: Providers Provider Primary care physician: Osbaldo Cao MD Consults: 09/12/25 22:14 Consult to Obstetrics Stat Comment: Preeclampsia Consulting Provider: Carla Chen 09/13/25 02:53 Consult to General Surgery Stat Comment: Hernia Consulting Provider: Lela Sanchez Attending Provider on DC: Rosita Li MD ([facility]) Discharging Provider: Rosita iL MD ([facility]) Anticipated date of discharge: 09/13/25 DS: Diagnosis Discharge Diagnosis (1) Chronic hypertension in obstetric context: Status: Acute Assessment & Plan: Increase labetalol to 300 mg p.o. twice daily follow-up with your primary PRODUCT SAFETY ENGINEER doctor tomorrow for scheduled appointment. (2) Headache after spinal puncture: Status: Acute Assessment & Plan: CT negative. Fioricet written. Increase fluid and caffeine. (3) Umbilical hernia without obstruction or gangrene: Status: Acute Assessment & Plan: Dr. Seaman from general surgery evaluated patient. No surgical intervention needed at this time. Problem List Completed Was Problem List Reviewed/Reconciled?: Yes Summary/Hosp Course Brief History: Patient is a 30-year-old -0-0-2 postop day 6 after repeat with a high risk physician in [place]. Patient presented in the ER with a headache. Her blood pressure was initially elevated and Dr. Chen was planning on admitting the patient however patient was monitored over several hours almost 12+ hours in the ER and her blood pressure stabilized in the 140s to 150s over 70s. She only required 1 dose of IV labetalol. Patient's headache is positional and typical of a spinal headache. At this point patient will be discharged home she has an appoint with her primary PRODUCT SAFETY ENGINEER tomorrow in [place]. I will add Fioricet and told the patient increase fluids and caffeine. She will increase her blood pressure medications to labetalol 300mg 3 times daily. She was on labetalol 200 mg twice daily. Peripartum Data Procedures: Patient had a in [place] 6 days ago for complications: spinal headache Status at Discharge Cognitive/behavioral status at discharge: Patient is alert and orient x 3 in no apparent distress Functional status at discharge: independent ambulation Overall status at discharge: patient is progressing back to baseline Time Spent with Patient Time attestation: Total time spent providing and/or coordinating discharge services: Time spent: Less than 30 minutes Specific discharge activities: Pelvic rest x 6 weeks no intercourse tampons douching heavy lifting or exercise x 6 weeks. Follow-up with your primary PRODUCT SAFETY ENGINEER in [place] tomorrow. Exam Vital Signs Temp Pulse Resp BP Pulse Ox O2 Del Method 98.5 F 85 18 154/83 H 95 Room Air 09/13/25 13:09 09/13/25 13:09 09/13/25 13:09 09/13/25 13:09 09/13/25 13:09 09/13/25 13:09 Narrative Exam Patient is alert and orient x 3 in no apparent distress Constitutional Constitutional: no acute distress Comments: Abdomen is obese. Fundus difficult to palpate but nontender. Incisions clean dry intact. Patient has some bruising on her abdomen from her Lovenox injections. Extremities show 1+ edema of her ankles no erythema. Discharge Plan Plan Patient Disposition: HOME (Self Care) Discharge Disposition comment: Stable Patient condition on transfer: Stable Prescriptions/Referrals Prescriptions/Med Rec: New hydrocodone-acetaminophen 5-325 mg Tablet 2 tab PO Q6HR MDD 2 PRN (Reason: Pain Scale 4-6 (Moderate) Qty: 5 0RF labetalol 100 mg Tablet 300 mg PO TID Qty: 9 0RF [id number]-xoifvzbdxlgom-phlg [Fioricet] 50-300-40 mg capsule 1 cap PO TID PRN (Reason: pain) Qty: 30 0RF Continued All Day Allergy (cetirizine) 10 mg capsule 10 mg PO QDAY Qty: 30 0RF sodium chloride [Saline Nasal Mist] 0.65 % aerosol,spray 2 spray intranasal QID Qty: 60 0RF ibuprofen 800 mg tablet 800 mg PO TID PRN (Reason: pain) Qty: 30 0RF Discontinued hydrochlorothiazide 25 MG tablet 25 mg PO QAM Qty: 30 0RF lisinopril 10 mg Tablet 40 mg PO QDAY ibuprofen [IBU] 800 mg tablet 800 mg PO Q8H Qty: 20 0RF Referrals: Osbaldo Cao MD [Primary Care Provider, Family Practice] - In 1 week Problem List Clinical Impression: Preeclampsia, Hypomagnesemia, Umbilical hernia, Urinary tract infection Impression comment: Headache, chronic hypertensive, possible spinal headache postop day 6 status repeat low-transverse section in [place] Patient/Caregiver Discharge Instructions Discharge Activity: activity as tolerated Other Activity Instructions:: Pelvic rest x 6 weeks. No heavy lifting inter course tampons douching for 6 weeks. Follow-up with your primary PRODUCT SAFETY ENGINEER doctor in [place] tomorrow. Diet Instructions: Low-salt diet drink lots of water Education Materials: Understanding Preeclampsia, Hernia Surgery Traditional Print Language: Cymro Stand Alone Forms: Maren Award Info., Patient Portal Info Letter Planned Discharge Date 09/13/25 (1) Chronic hypertension in obstetric context Qualifiers: Trimester: unspecified trimester Qualified Code(s): O10.919 - Unspecified pre-existing hypertension complicating , unspecified trimester
[2025-09-13] MEDS: ACETAMIN/CAFF/BUTAL (Fioricet) 1 TAB 2 TAB PO (14:27)
== END 2025-09-13 14:50 | disposition home or self-care (01) ==
PROVIDERS: Obstetrics & Gynecology; Emergency Provider Emergency Medicine; PCP Family Medicine
DX: O11.5 Pre-existing hypertension with pre-eclampsia, complicating the puerperium (principal); O10.93 Unspecified pre-existing hypertension complicating the puerperium; O86.20 Urinary tract infection following delivery, unspecified; N39.0 Urinary tract infection, site not specified; O90.89 Other complications of the puerperium, not elsewhere classified; K42.9 Umbilical hernia without obstruction or gangrene; O99.285 Endocrine, nutritional and metabolic diseases complicating the puerperium; E83.42 Hypomagnesemia
CPT/HCPCS: 36415; 70450; 71045; 74177; 76705; 80053; 81001; 82150; 82248; 82550; 82803; 83036; 83690; 83735; 83880; 84145; 84443; 84484; 84550; 85025; 85610; 85652; 85730; 86140; 87086; 87502; 87811; 93005; 96365; 96366; 99284; A4649; J0696; J3475; J7030; Q9967; A9270

== ENCOUNTER 2025-09-24 22:50 | Emergency (ER) | payer MEDICAID, SELFPAY ==
[2025-09-24 22:58] VITALS: BMI 66.6
--- NOTE | 2025-09-24 22:59 | PC.NURSE ---
RIGO PAIGE AT TRIAGE AND PER RIGO PAIGE NOT A STROKE ALERT.
--- NOTE | 2025-09-24 23:07 | XR_ITS ---
Examination: CT brain head without contrast. 2-D sagittal coronal reconstructions Date and time of exam: September 24, 2025, 1123 hours, comparison September 12, 2025 INDICATIONS: Headache blurred vision beginning 3 hours ago CTDI: vol (mGy): 67.6 DLP: (mGycm): 1357 Technique: Multiple CT axial sections of the brain have been obtained, 5 mm slice thickness. Contrast has not been administered. 2-D sagittal, coronal reconstructions have been obtained Low dose protocols were performed. One or more of the following dose reduction techniques were used; automated exposure control, adjustment of the mA and/or KV according to patient size, use of iterative reconstruction technique. Findings: No significant ventricular enlargement. Intra-axial or extra-axial hemorrhage density is not seen. No mass effect or midline shift Basal cisterns are not remarkable. Fourth ventricle is midline. Cranial vault intact. Impression: Negative for acute hemorrhage, mass effect or midline shift As clinically warranted, brain MRI follow-up would best assess for demyelinating disease, acute ischemic change
[2025-09-24 23:11] VITALS: BP 164/104; PULSE 54; RESP 18; TEMP 36.6; O2SAT 98
--- NOTE | 2025-09-24 23:13 | EKG_ITS ---
[facility] Test Date: 2025-09-24 Pat Name: PATRICIO THORNTON Department: Room: - Gender: Female It Applications Manager: : 1995 Requested By: Porfirio Padilla Order Number: [id number] Reading MD: Porfirio Padilla Measurements Intervals [place] Rate: 53 P: 40 ND: 151 QRS: 39 QRSD: 102 T: 45 QT: 442 QTc: 417 Interpretive Statements SINUS BRADYCARDIA Compared to ECG 09/12/2025 20:58:54 Sinus rhythm no longer present /store/S0/[id number].pdf
[2025-09-24 23:41] LABS: Collection Type, Urine Voided
[2025-09-24 23:43] LABS: Basophils # (Auto) 0.1 Thou/mm3 (0.0-0.2); Basophils % (Auto) 1 % (0-2.5); Eosinophils # (Auto) 0.2 Thou/mm3 (0.0-0.5); Eosinophils % (Auto) 3 % (0-10); Hematocrit 36.8 % (36.0-46.0); Hemoglobin 11.3 g/dL (12.0-16.0); Immature Granulocytes Auto 0.03 Thou/mm3 (0.00-0.00); Lymphocytes # (Auto) 2.4 Thou/mm3 (1.0-4.8); Lymphocytes % (Auto) 28 % (10-50); Mean Corpuscular HGB Conc 30.7 g/dl (31.0-37.0); Mean Corpuscular Hemoglobin 25.7 pg (25.0-35.0); Mean Corpuscular Volume 84 fL (80-100); Monocytes # (Auto) 0.4 Thou/mm3 (0.0-0.8); Monocytes % (Auto) 5 % (0-12); Neutrophils # (Auto) 5.5 Thou/mm3 (1.8-7.7); Neutrophils % (Auto) 64 % (37-80); Nucleated Red Blood Cell # 0.00 Thou/mm3 (0.00-0.00); Nucleated Red Blood Cell % 0 /100 WBC (0); Platelet Count 319 Thou/mm3 (140-440); RDW Standard Deviation 44.3 fL (36.4-46.3); Red Blood Count 4.39 Miln/mm3 (4.00-5.20); White Blood Count 8.6 Thou/mm3 (3.6-11.0)
[2025-09-24 23:47] LABS: Bilirubin,Urine Negative (Negative); Blood,Urine 1+ (Negative); Clarity,Urine Clear (Clear/Hazy); Color,Urine Colorless (Lt Yel-Yel); Glucose, Urine Negative (Negative); Ketones,Urine Negative (Negative); Leukocyte Esterase,Urine Negative (Negative); Nitrite,Urine Negative (Negative); PH,Urine 6.5 (5.0-7.0); Protein,Urine Negative (Neg - Trace); RBC,Urine 8 /hpf (0-3); Specific Gravity,Urine 1.007 (1.001-1.035); Squamous Epithelial Cell,Urine < 1 /hpf (0-5); Urobilinogen,Urine Negative mg/dL (0.0-1.0); WBC,Urine 1 /hpf (0-5)
[2025-09-25] VITALS (7 sets, daily range): BP systolic 152–202; BP diastolic 89–119; PULSE 44–57; RESP 18–19; TEMP 36.5–36.9; O2SAT 90–100
[2025-09-25 00:07] LABS: Alanine Aminotransferase 54 U/L (10-49); Albumin, Serum 4.4 gm/dL (3.5-5.0); Albumin/Globulin Ratio 1.5 (1.2-2.2); Alkaline Phosphatase 105 U/L (46-116); Anion Gap 12 (7-16); Aspartate Amino Transferase 35 U/L (0-34); BUN/Creatinine Ratio 11 Ratio (12-20); Bilirubin,Total 0.6 mg/dL (0.3-1.2); Blood Urea Nitrogen 10 mg/dL (9-23); Calcium 9.2 mg/dL (8.3-10.6); Calcium (Corrected) 9.2 mg/dL (8.5-10.1); Carbon Dioxide 26.2 mMol/L (20.0-31.0); Chloride 107 mMol/L (98-107); Creatinine (Component) 0.9 mg/dL (0.6-1.3); Estimated Creatinine Clearance 164.9 mL/min (>60); Globulin 3.0 gm/dL (2.3-3.5); Glucose 92 mg/dL (74-106); Osmolality,Calculated 287 (275-295); Potassium 4.0 mMol/L (3.4-5.1); Sodium 145 mMol/L (136-145); Total Protein 7.4 gm/dL (5.7-8.2); Troponin I 0.023 ng/mL (0.0-0.045); eGFR > 60 See Note
[2025-09-25 00:11] LABS: HCG,Qualitative Serum Negative
[2025-09-25] MEDS: ONDANSETRON ODT 4 MG TABRAP PO (00:59)
[2025-09-25] MEDS: HYDROcodone/APAP 5/325 TABLET 1 TAB PO (00:59)
[2025-09-25] MEDS: KETOROLAC INJ 60 MG/2 ML VIAL 30 MG IM (00:59)
--- NOTE | 2025-09-25 01:36 | PC.NURSE ---
eddi briones made aware of pts low bp. eddi briones told this nurse to give pain meds wait 30 minutes then administer clonidine. no new orders at this time
--- NOTE | 2025-09-25 03:53 | PC.NURSE ---
communications field technician briones ok with discharging pt with hr in the 50s and bp of 167/95. pt made aware that provider wants her to follow up with her doctor amber.
--- NOTE | 2025-09-25 04:45 | EDNOTE_ITS ---
ED Headache RME/HPI General Chief Complaint: Headache Stated Complaint: CHATTERJEE BLURRY VISION Time Seen by Provider: 09/24/25 22:53 Arrival date/time: 09/24/25 22:50 This is a case of 30-year-old female with history of hypertension on labetalol 300 mg p.o. daily came in in the emergency room due to headache for 3 days worse today associated with blurring of vision 3 hours prior to arrival in the emergency room which was already resolved prior to arrival in the emergency room patient denies any chest pain palpitation shortness of breath denies any dizziness nausea vomiting denies any numbness weakness tingling sensation no other symptoms noted Limitations: no limitations Related Data Previous Rx's ?Medication ?Instructions ?Recorded ibuprofen 800 mg tablet 800 mg PO TID PRN pain #30 t abs 07/07/19 cetirizine 10 mg capsule (All Day 10 mg PO QDAY #30 ca ps 09/14/20 Allergy (cetirizine)) sodium chloride 0.65 % nasal spray 2 spray intranasal QID #60 mL 09/14/20 aerosol (Saline Nasal Mist) kjegoajzka-rkccvxrnjiixa-djisbupk 1 cap PO TID PRN david n #30 caps 09/13/25 50 mg-300 mg-40 mg capsule (Fioricet) hydrocodone 5 mg-acetaminophen 325 2 tab PO Q6HR PRN P ain Scale 4-6 09/13/25 mg tablet (Moderate #5 tabs labetalol 100 mg tablet 300 mg (3 x 100 mg) PO TID # 9 tabs 09/13/25 hydrocodone 5 mg-acetaminophen 325 1 tab PO Q6H PRN pa in #12 tabs 09/25/25 mg tablet ondansetron 4 mg disintegrating 4 mg PO Q8H #20 tabs 1 11/26/24 tablet Allergies Allergy/AdvReac Type Severity Reaction Status Date / Time No Known Allergies Allergy Verified 09/24/25 22:59 Review of Systems Review of Systems Systems Reviewed: All systems reviewed, normal except as documented Past Medical History Past Medical History CARDIAC: Positive Hypertension; Negative Cardiac Disorders, Hypercholesterolemia or Congestive Heart Failure RESPIRATORY: Negative Chronic Obstructive Pulmonary Disease (COPD) or Asthma GASTROINTESTINAL: Positive Gastrointestinal Disorders, Pancreatitis, Gall Bladder Disease and Obesity GENITOURINARY: Negative Renal Disease REPRODUCTIVE: Positive Previous Pregnancies ENDOCRINE: Negative Diabetes Mellitus Type 1 or Diabetes Mellitus Type 2 HEMATOLOGIC: Negative Sickle Cell Disease OTHER HISTORY: Positive Hospitalization Surgical History SURGICAL: Positive Tonsillectomy and Section Social History SMOKING STATUS: Former smoker ED Exam General Limitations: Present no limitations General appearance: Present alert, in no apparent distress and other (Patient is awake alert oriented not in distress nontoxic looking well-hydrated well noursiehed) Head Head exam: Present atraumatic, normocephalic and normal inspection Eye Eye exam: Present normal appearance, PERRL, EOMI and other (PERRL EOM intact normal conjunctiva no papillae ) ENT ENT exam: Present normal exam, normal oropharynx, mucous membranes moist and other (HEENT exam is normal and unremarkable) Neck Neck exam: Present normal inspection, full ROM, trachea midline and other (Negative for meningeal sign); Absent tenderness, meningismus, lymphadenopathy or thyromegaly Chest Chest inspection: Present normal inspection and symmetric chest wall rise; Absent tenderness Respiratory Respiratory exam: Present normal lung sounds bilaterally; Absent respiratory distress, wheezes, stridor, accessory muscle use or prolonged expiratory phase Cardiovascular Cardiovascular exam: Present regular rate, normal rhythm and normal heart sounds; Absent bradycardia, tachycardia, irregular rhythm, systolic murmur or diastolic murmur Abdominal Exam Abdominal exam: Present soft and normal bowel sounds; Absent distention, tenderness, guarding, rebound, rigidity, diminished bowel sounds, hyperactive bowel sounds, hypoactive bowel sounds or organomegaly Extremities Exam Extremities exam: Present normal inspection and full ROM Back Exam Back exam: Present normal inspection and full ROM Neurological Exam Neurological exam: Present alert, oriented X3, CN II-XII intact, normal gait, reflexes normal and other (Awake alert oriented x 4 no focal deficit GCS 15/15 steady gait CN II to XII is normal memory intact no slurring speech no facial droop motor or sensory reflex are all normal in all extremities negative Babinski); Absent motor sensory deficit Psychiatric Psychiatric exam: Present normal affect and normal mood Skin Skin exam: Present warm, dry, intact, normal color and other (Excellent skin turgor) Course Quality Measures none Orders Category Date Time Status EKG (ED ONLY) *Do not use* NOW Care 09/24/25 23:[address] head/brain wo con Stat Exams 09/24/25 23:07 Completed EKG (ED Only) Stat Exams 09/24/25 23:13 Draft CBC Stat Lab 09/24/25 23:24 Completed CMP [Comprehensive Metabolic Panel] Stat Lab 09/24/25 23:24 Completed HCG,Qualitative Serum Stat Lab 09/24/25 23:24 Completed Troponin I Stat Lab 09/24/25 23:24 Completed Urinalysis Stat Lab 09/24/25 23:36 Completed DiphenhydrAMINE INJ [Benadryl Inj] Med 09/25/25 00:36 Discontinued 25 mg IM X1 ONE HYDROcodone*/APAP 5/325 [[place] 5/325] Med 09/25/25 00:36 Discontinued 1 tab PO X1 ONE Ketorolac Inj [Toradol Inj] Med 09/25/25 00:36 Discontinued 30 mg IM X1 ONE Morphine* Inj Med 09/24/25 23:07 Discontinued 4 mg IVP X1 ONE Ondansetron Inj [Zofran Inj] Med 09/24/25 23:07 Discontinued 4 mg IVP X1 ONE Ondansetron Odt [Zofran Odt] Med 09/25/25 00:36 Discontinued 4 mg PO X1 ONE Sodium Chloride 0.9% 1000 ml [Ns] 1,000 ml Med 09/24/25 23:07 Discontinued IV 999 mls/hr cloNIDine HCL [Catapres] Med 09/25/25 00:31 Discontinued 0.2 mg PO X1 ONE Vital Signs Vital signs: Vital Signs Temperature 98 F 09/24/25 23:11 Pulse Rate 54 L 09/24/25 23:11 Respiratory Rate 18 09/24/25 23:11 Blood Pressure 164/104 H 09/24/25 23:11 Pulse Oximetry (%) 98 09/24/25 23:11 Oxygen Delivery Method Room Air 09/24/25 23:11 Patient oxygen saturation is 98% in room air Headache MDM Narrative MDM Narrative:: This is a case of 30-year-old female with history of hypertension on labetalol 300 mg p.o. daily came in in the emergency room due to headache for 3 days worse today associated with blurring of vision 3 hours prior to arrival in the emergency room which was already resolved prior to arrival in the emergency room patient denies any chest pain palpitation shortness of breath denies any dizziness nausea vomiting denies any numbness weakness tingling sensation no other symptoms noted physical examination patient is awake alert oriented not in distress nontoxic looking well-hydrated well nourished excellent skin turgor negative for meningeal sign PERRL EOM intact normal conjunctiva no pappiledema HEENT exam is normal and unremarkable lungs sound is clear no crackles no rales no retraction no stridor heart normal rate regular rhythm no murmur no pitting edema patient is obese normal active bowel sound no guarding no rebound no rigidity neurological exam is normal awake alert oriented x 4 no focal deficit GCS 15/15 steady gait CN II to XII is normal memory intact no slurring speech no facial droop motor or sensory reflex are all normal in all extremities negative Babinski patient blood test showed no leukocytosis no anemia kidney and liver function is normal no electrolyte imbalance urinalysis is normal troponin is negative EKG is sinus bradycardia 55 patient is on labetalol no ST elevation no depression chest x-ray is normal CT scan of the head were also normal no TIA no CVA no brain I do not think patient is having preeclampsia patient blurring of vision resolved prior to arrival in the emergency room patient headache is also resolved after medication patient has no shortness of breath no facial swelling no proteinuria in the urine patient blood pressure went down to 164/95 without medication patient was discharged stable condition I discussed with her the importance to see the primary care physician today for reevaluation and for monitoring of blood pressure and to review his medication for blood pressure because labetalol causing his heart rate low patient need a different medication of hypertension by his primary care physician patient understood very well the discharge instruction I also discussed with the patient for any recurrence of the symptoms she needs to return in the emergency room immediately or call 911 she also need to monitor his blood pressure twice a day and if the blood pressure greater than 160/100 he needs to return in the emergency room immediately or call 911 if she is become symptomatic she needs to go to the ER also patient also discussed to monitor her her heart rate if her heart rate is less than 55 she needs to hold the labetalol and go to his primary care physicia n to change the medication patient understood verbally the discharge instruction and agreed with the treatment plan and discharge she also need to see an OB sap bpc architect for follow up Patient was discharged with comfortable condition walking with stable gait. Patient verbalized no further complains explained diagnosis and answered patient question. Patient is comfortable with the proposed management plan including the need to follow up with his/her primary care physician and any specialist if applicable Discussed patient for any urgent condition or worsening sx, He/She needed to go to emergency room immediately or call 911. Patient acknowledge the responsibility to follow up as instructed and to monitor her/his symptoms. For any persistence of the symptoms for more than 3-5 days return precaution advised. Discussed the result of the test and was given printed discharge instruction Patient data External records reviewed:: [facility] previous records Clinical information provided by:: patient Social determinants that could affect healthcare access:: none Patient has the following chronic illnesses:: None How is presenting disease/condition affected by chronic disease/condition?: no chronic disease Evaluation data The following diagnostics were reviewed and interpreted by me:: lab results, radiology exam(s) and EKG tracing(s) Lab and/or radiology exams considered but not ordered:: Reviewed Interpretation Summary: Reviewed Medications / Prescriptions Medications or Prescriptions considered but not ordered:: Given Medication administrations:: Medication Administration History Discontinued Medications Hydrocodone Bitart/Acetaminophen (Hydrocodone/Apap 5/325 Tablet) 1 tab PO X1 ONE Stop: 09/25/25 00:37 Last Admin: 09/25/25 00:59 Dose: 1 tab Documented By: HECTOR Clonidine (Clonidine Hcl 0.1 Mg Tablet) 0.2 mg PO X1 ONE Stop: 09/25/25 00:32 Last Admin: 09/25/25 01:35 Dose: 0.2 mg Documented By: HECTOR Diphenhydramine HCl (Diphenhydramine Inj 50 Mg/Ml Vial) 25 mg IM X1 ONE Stop: 09/25/25 00:37 Last Admin: 09/25/25 01:00 Dose: 25 mg Documented By: HECTOR Sodium Chloride (Ns) 1,000 mls @ 999 mls/hr IV .Q1H1M ONE Stop: 09/25/25 00:07 Last Admin: 09/25/25 01:38 Dose: Not Given Documented By: HECTOR Non-Admin Reason: Cancelled by Provider Ketorolac Tromethamine (Ketorolac Inj 60 Mg/2 Ml Vial) 30 mg IM X1 ONE Stop: 09/25/25 00:37 Last Admin: 09/25/25 00:59 Dose: 30 mg Documented By: HECTOR Morphine Sulfate (Morphine Sulf Inj 4 Mg/Ml Vial) 4 mg IVP X1 ONE Stop: 09/24/25 23:08 Last Admin: 09/25/25 01:38 Dose: Not Given Documented By: HECTOR Non-Admin Reason: Cancelled by Provider Ondansetron HCl (Ondansetron Inj 2 Mg/Ml Inj 2 Ml) 4 mg IVP X1 ONE; Protocol Stop: 09/24/25 23:08 Last Admin: 09/25/25 01:38 Dose: Not Given Documented By: HECTOR Non-Admin Reason: Cancelled by Provider Ondansetron HCl (Ondansetron Odt 4 Mg Tabrap) 4 mg PO X1 ONE; Protocol Stop: 09/25/25 00:37 Last Admin: 09/25/25 00:59 Dose: 4 mg Documented By: HECTOR Give Consultations Consultation(s) initiated? (list below): No Diagnosis Differential diagnosis headache: migraine, tension headache, headache and sinusitis Most likely diagnosis given after review of the tests above:: Headache Admission Indicated Admission indicated?: not indicated Explain why admission is indicated or not indicated:: Not indicated Admission Request Was there a request for admission?: No Admission Attestation Admission request attestation: Not indicated Disposition Plan Disposition Plan: Discharge Discharge Attestation Discharge Attestation: The patient and all family members were given an opportunity to ask questions and understood the discharge instructions. Discharge instructions specifically effects, indications for sooner follow up or return to the emergency department, and the expected course of current diagnosis. Patient condition: Stable Discharge Plan Plan Patient Disposition: HOME (Self Care) Patient condition on transfer: Stable Prescriptions/Referrals Prescriptions/Med Rec: New hydrocodone-acetaminophen 5-325 mg tablet 1 tab PO Q6H MDD max 4 tabs per day PRN (Reason: pain) Qty: 12 0RF ondansetron 4 mg tablet,disintegrating 4 mg PO Q8H Qty: 20 0RF No Action All Day Allergy (cetirizine) 10 mg capsule 10 mg PO QDAY Qty: 30 0RF sodium chloride [Saline Nasal Mist] 0.65 % aerosol,spray 2 spray intranasal QID Qty: 60 0RF ibuprofen 800 mg tablet 800 mg PO TID PRN (Reason: pain) Qty: 30 0RF hydrocodone-acetaminophen 5-325 mg Tablet 2 tab PO Q6HR MDD 2 PRN (Reason: Pain Scale 4-6 (Moderate) Qty: 5 0RF labetalol 100 mg Tablet 300 mg PO TID Qty: 9 0RF ymitaljknn-tapxlzdwocqda-sdqj [Fioricet] 50-300-40 mg capsule 1 cap PO TID PRN (Reason: pain) Qty: 30 0RF Referrals: Osbaldo Cao MD [Primary Care Provider, Family Practice] - In 1 week Problem List Clinical Impression: Headache, Hypertension, uncontrolled Patient/Caregiver Discharge Instructions Education Materials: Self-Care for Headaches, ED High Blood Pressure ... Additional Instructions: Follow-up with your primary care physician in 2 days for reevaluation and to be referred to neurologist for further evaluation and treatment of your headache you also need to follow-up with your primary care physician for your uncontrolled hypertension to monitor and to review your medication for your blood pressure continue to take your labetalol your blood pressure medication check your blood pressure twice a day and if your blood pressure greater than 160/100 or become symptomatic return to the emergency room immediately or call 911 worsening symptoms or any emergent concern return to the emergency room immediately or call 911 low-fat low-salt low-cholesterol diet and regular exercise is advised keep hydrated Print Language: Norwegian Stand Alone Forms: Maren Award Info., Patient Portal Info Letter PA/HELIO Supervising Physician RIGO/HELIO Supervising Physician: Dr. Tipton
== END 2025-09-25 03:54 | disposition home or self-care (01) ==
PROVIDERS: Nurse Practitioner Family; Emergency Provider Emergency Medicine; PCP Family Medicine
DX: R51.9 Headache, unspecified (principal); I10 Essential (primary) hypertension; R00.1 Bradycardia, unspecified; Z87.891 Personal history of nicotine dependence
CPT/HCPCS: 36415; 70450; 80053; 81001; 84484; 84703; 85025; 93005; 96372; 99283; J1200; J1885; Q0162; A9270